=== PATIENT | female | born 1980 | race African-American/Black ===

== ENCOUNTER 2021-01-27 09:08 | Emergency (ER) | payer OTHER ==
[2021-01-27 09:17] VITALS: BMI 21.7
[2021-01-27 10:00] LABS: BASO % 0.5 % (0-2.0); EOS % 0.9 % (0-4.5); HEMATOCRIT 38.7 % (32.4-45.2); HEMOGLOBIN 13.2 GM/dL (10.7-15.3); LYMPH % 29.8 % (8-40); MCH 30.7 pg (25.7-33.7); MCHC 34.1 g/dl (32.0-36.0); MEAN CELL VOLUME 90.2 fl (80-96); MEAN PLT VOLUME 7.6 fl (7.5-11.1); MONO % 7.7 % (3.8-10.2); NEUT % 61.1 % (42.8-82.8); PLATELET COUNT 286 10^3/uL (134-434); RBC 4.29 M/mm3 (3.60-5.2); RDW 12.7 % (11.6-15.6); WHITE BLOOD COUNT 5.7 K/mm3 (4.0-10.0)
[2021-01-27 10:07] LABS: INR 0.95 (0.83-1.09); PROTHROMBIN TIME (PATIENT) 11.7 SEC (9.7-13.0)
[2021-01-27 10:14] LABS: EPI CELLS 15 /uL (0-25.1); HYALINE CASTS 0 /uL (0-3.1); PH,URINE 6.5 (5.0-8.0); URINE APPEARANCE CLEAR; URINE BACTERIA 305 /uL (0-1359); URINE BILIRUBIN NEGATIVE (NEGATIVE); URINE COLOR YELLOW; URINE GLUCOSE (UA) NEGATIVE (NEGATIVE); URINE KETONE NEGATIVE (NEGATIVE); URINE LEUK ESTERASE NEGATIVE (NEGATIVE); URINE NITRITE NEGATIVE (NEGATIVE); URINE PROTEIN NEGATIVE (NEGATIVE); URINE RBC 15 /uL (0-23.9); URINE WBC 13 /uL (0-25.8)
[2021-01-27 10:28] LABS: ALBUMIN 4.2 g/dl (3.4-5.0)
[2021-01-27 10:29] LABS: BLOOD UREA NITROGEN 12.6 mg/dL (7-18)
[2021-01-27 10:32] LABS: CREATININE 0.7 mg/dL (0.55-1.3)
[2021-01-27 10:33] LABS: BILIRUBIN,TOTAL 1.3 mg/dL (0.2-1); TOT PROT 7.4 g/dl (6.4-8.2)
[2021-01-27 13:43] VITALS: BP 117/75; PULSE 73; TEMP 98
== END 2021-01-27 14:20 | disposition home or self-care (01) ==
LOC: JER 09:08
DX: O20.8 Other hemorrhage in early pregnancy (principal)
CPT/HCPCS: 36415; 76817-TC; 80053; 81003; 84702; 85025; 85610; 86850; 86900; 86901; 87491; 87591; 99284-25